=== PATIENT | female | born 1980 | race Caucasian/White ===

== ENCOUNTER 2018-06-14 11:24 | Emergency (ER) | payer OTHER ==
[~2018-06-14] VITALS: Ht 167.6 cm; Wt 77.1 kg
[~2018-06-14 11:24] MED LIST: ACETAMINOPHEN-1 EAC1 PO; ADVAIR 500-501 EACH; AUGMENTIN 875875 M1 PO; BACTRIM DS TAB1 EACH PO; BACTROBAN CREAM30 GM; BACTROBAN CREAM30 GM TOP; BENADRYL25 MG PO; BIRTH CONTROL; CEPHALEXIN 500500 M3; CLOMIPRAMINE HC50 M1; DOXYCYCLINE 10100 MG PO; IBUPROFEN 800800 MG PO; MELATONIN10 MG PO; NORCO 5-325 TA1 EACH PO; ONDANSETRON HCL4 M2 PO; PERCOCET 5-3251 EACH PO; PREVACID15 MG PO; PROVENTIL HFA6.7 G1; REGLAN 10 MG TA10 M1; SINGULAIR 10 MG10 M1; XANAX 0.5 MG0.5 MG; ZOFRAN4 MG PO; [UNRECOGNIZED DRUG - OTHER]
[2018-06-14] MEDS ORDERED: SINGULAIR 10 MG10 M1 PO (11:34)
[2018-06-14] MEDS ORDERED: MEDROLDOSEPACK PO (12:05)
[2018-06-14] MEDS ORDERED: MOBIC15 MG PO (12:05)
[2018-06-14 12:22] VITALS: BP 96/69
== END 2018-06-14 12:22 | disposition home or self-care (01) ==
LOC: M.ERS 11:24
DX: S93.492A Sprain of other ligament of left ankle, initial encounter (principal); J45.909 Unspecified asthma, uncomplicated; Z98.890 Other specified postprocedural states; W10.9XXA Fall (on) (from) unspecified stairs and steps, initial encounter; Y93.01 Activity, walking, marching and hiking; Y92.89 Other specified places as the place of occurrence of the external cause; Y99.8 Other external cause status

== ENCOUNTER 2019-04-30 12:57 | Emergency (ER) | payer OTHER ==
[~2019-04-30] VITALS: Ht 167.6 cm; Wt 81.7 kg
[~2019-04-30 12:57] MED LIST changes: +MEDROLDOSEPACK PO; +MOBIC15 MG PO; +SINGULAIR 10 MG10 M1 PO
[2019-04-30] MEDS ORDERED: PREVACID30 MG PO (13:29)
[2019-04-30] MEDS ORDERED: XANAX 0.5 MG0.5 M1 PO (13:30)
[2019-04-30] MEDS ORDERED: BLACK COHOSH540 MG PO (13:30)
[2019-04-30] MEDS ORDERED: LEXAPRO20 MG PO (13:30)
[2019-04-30] MEDS ORDERED: MINOCYCLINE HC100 M2 PO (13:30)
[2019-04-30] MEDS ORDERED: IBUPROFEN 800800 M1 PO ×2 (16:08→16:09)
[2019-04-30] MEDS ORDERED: NORCO 5-325 TA1 EAC1 PO (16:08)
[2019-04-30] MEDS ORDERED: ONDANSETRON HCL4 M2 PO ×2 (16:17)
[2019-04-30 16:22] VITALS: BP 115/80
== END 2019-04-30 16:24 | disposition home or self-care (01) ==
LOC: M.ERS 12:57
DX: S92.351A Displaced fracture of fifth metatarsal bone, right foot, initial encounter for closed fracture (principal); J45.909 Unspecified asthma, uncomplicated; Z98.890 Other specified postprocedural states; Z88.5 Allergy status to narcotic agent; Z88.6 Allergy status to analgesic agent; W10.8XXA Fall (on) (from) other stairs and steps, initial encounter; Y93.89 Activity, other specified; Y92.89 Other specified places as the place of occurrence of the external cause; Y99.8 Other external cause status

== ENCOUNTER 2021-07-04 08:58 | Emergency (ER) | payer OTHER ==
[~2021-07-04] VITALS: Ht 170.2 cm; Wt 77.1 kg
[~2021-07-04 08:58] MED LIST changes: +BLACK COHOSH540 MG PO; +IBUPROFEN 800800 M1 PO; +LEXAPRO20 MG PO; +MINOCYCLINE HC100 M2 PO; +NORCO 5-325 TA1 EAC1 PO; +PREVACID30 MG PO; +XANAX 0.5 MG0.5 M1 PO
[2021-07-04 09:28] LABS: ABSOLUTE BASOPHILS 0.2 thou/uL (0.0-0.2); ABSOLUTE EOSINOPHILS 0.1 thou/uL (0.0-0.7); ABSOLUTE LYMPHOCYTES 2.4 thou/uL (0.8-5.3); ABSOLUTE MONOCYTES 0.8 thou/uL (0.0-1.2); ABSOLUTE NEUTROPHILS 7.7 thou/uL (1.6-8.1); BASOPHILS 1.4 %; EOSINOPHILS 0.7 %; HEMATOCRIT 41.9 % (37.0-47.0); HEMOGLOBIN 13.8 gm/dL (12.0-15.0); LYMPHOCYTES 21.8 %; MCH 26.5 pg (26.0-34.0); MCHC 32.9 g/dL (28.0-37.0); MCV 80.5 fL (80.0-100.0); NUCLEATED RBCS 0 /100WBC; PLATELET COUNT* 322 thou/uL (150-400); POLYS 69.1 %; RBC 5.21 mil/uL (4.20-5.00); WBC 11.1 thou/uL (4.0-11.0)
[2021-07-04 09:41] LABS: CALCIUM 9.1 mg/dL (8.5-10.1); CREATININE 0.8 mg/dL (0.6-1.3); POTASSIUM 3.8 mmol/L (3.5-5.1)
[2021-07-04 09:46] LABS: ALBUMIN 3.4 g/dL (3.4-5.0); TOTAL BILIRUBIN 0.4 mg/dL (<0.1-1.0); TOTAL PROTEIN 7.8 g/dL (6.4-8.2)
[2021-07-04] MEDS ORDERED: PROVERA10 MG PO (10:03)
[2021-07-04 10:16] VITALS: BP 120/88
== END 2021-07-04 10:16 | disposition home or self-care (01) ==
LOC: M.ERS 08:58
PROVIDERS: Family Medicine
DX: N93.8 Other specified abnormal uterine and vaginal bleeding (principal); R11.2 Nausea with vomiting, unspecified; J45.909 Unspecified asthma, uncomplicated; Z98.890 Other specified postprocedural states; Z79.899 Other long term (current) drug therapy; Z88.8 Allergy status to other drugs, medicaments and biological substances; Z88.5 Allergy status to narcotic agent